=== PATIENT | male | born 1975 | race Caucasian/White ===

== ENCOUNTER 2018-01-11 21:43 | Emergency (ER) | payer BC ==
[~2018-01-11] VITALS: Ht 180.3 cm; Wt 103.1 kg
[2018-01-11 22:41] LABS: HEMOGLOBIN 15.9 G/DL (12.5-16.6); MCH 31.6 PG (29.0-34.0); MCHC 34.6 G/DL (30.0-36.0); MCV 91.5 FL (86-99); PLATELET COUNT 306 K/uL (156-360); RBC DIS.WIDTH-CV 12.6 % (11.8-14.6); RBC DIS.WIDTH-SD 41.5 % (39-53); RED BLOOD COUNT 5.03 M/uL (4.00-5.50); WHITE BLOOD COUNT 10.9 K/uL (4.1-10.2)
[2018-01-11 22:51] LABS: CHLORIDE 105 mEq/L (99-109); POTASSIUM 4.2 mEq/L (3.7-5.4); SODIUM 142 mEq/L (136-147)
[2018-01-11 22:52] LABS: GLUCOSE 104 mg/dL (70-99)
[2018-01-11 22:56] LABS: CREATININE 1.1 mg/dL (0.6-1.3); GFR ESTIMATE (CALCULATED) > 59 mL/min/ (58.99-99999)
[2018-01-11 22:57] LABS: UREA NITROGEN (BUN) 12 mg/dL (9-23)
[2018-01-12 01:48] LABS: CREATINE KINASE 85 IU/L (1-294)
[2018-01-12 01:52] LABS: TROP-I INTERPRETATION NEGATIVE; TROPONIN-I < 0.01 ng/mL (0.0-0.30)
[2018-01-12] MEDS ORDERED: PREDNISONE20 MG PO (02:22)
[2018-01-12] MEDS ORDERED: HYCODAN SYRUP480 ML PO (02:22)
[2018-01-12 03:40] VITALS: BP 115/72
== END 2018-01-12 03:59 | disposition home or self-care (01) ==
LOC: EME 21:43
PROVIDERS: Emergency Medicine
DX: J45.909 Unspecified asthma, uncomplicated (principal); F17.200 Nicotine dependence, unspecified, uncomplicated; Z71.6 Tobacco abuse counseling
CPT/HCPCS: 71046; 80048; 82550; 84484; 85027; 93005; 94640; 99281; 99285; J2930